=== PATIENT | male | born 1990 | race African-American/Black ===

== ENCOUNTER 2016-08-19 09:25 | Emergency (ER) | payer OTHER, MEDICAID ==
[~2016-08-19] VITALS: Ht 182.9 cm; Wt 111.0 kg
[2016-08-19] MEDS ORDERED: IPRATROPIUM/ALBUTEROL 0.5-3(2.5)MG/3ML NEB HHN ONE ×2 (10:00→10:30)
[2016-08-19] MEDS ORDERED: ACETAMINOPHEN 650MG/20.3ML UDC PO ONE (11:30)
[2016-08-19 11:48] VITALS: BP 129/81
== END 2016-08-19 11:57 | disposition home or self-care (01) ==
LOC: ER 10:12
DX: J06.9 Acute upper respiratory infection, unspecified (principal); J45.909 Unspecified asthma, uncomplicated
CPT/HCPCS: 71010; 94640; 99284; J7620

== ENCOUNTER 2016-11-12 14:13 | Emergency (ER) | payer OTHER, MEDICAID ==
[~2016-11-12] VITALS: Ht 182.9 cm; Wt 107.0 kg
[2016-11-12 20:05] VITALS: BP 124/70
== END 2016-11-12 20:40 | disposition home or self-care (01) ==
LOC: ER 20:01
DX: L42 Pityriasis rosea (principal); J45.909 Unspecified asthma, uncomplicated
CPT/HCPCS: 99281